=== PATIENT | male | born 1990 | race Two or more races ===

== ENCOUNTER 2021-07-27 20:52 | Emergency (ER) | payer OTHER ==
[2021-07-27] MEDS ORDERED: Lidocaine 1% with EPINEPHrine 1:100,000 10 ML MDV INJECT ONE (22:18)
[2021-07-27] MEDS ORDERED: Cefdinir 300 MG Cap PO ONE (22:32)
--- NOTE | 2021-07-27 22:38 | EDM.PDOC ---
ED HPI GENERAL MEDICAL PROBLEM - General Chief Complaint: Laceration Stated Complaint: LT THUMB LAC Time Seen by Provider: 07/27/21 22:18 Source of Information: Reports: Patient, RN Notes Reviewed History Limitations: Reports: No Limitations - History of Present Illness INITIAL COMMENTS - FREE TEXT/NARRATIVE: Patient is a 31-year-old male who presents to the ER for evaluation of a left thumb laceration. Patient notes he was using a screwdriver at home, when the screwdriver slipped off of the screw, and ended up puncturing the base of his left thumb. States that it did go in fairly deep, but did come out intact. He is up-to-date on his tetanus vaccine. Patient states that he thought he could see bone, he did try to clean the area with antiseptic wipe He is denying any numbness or tingling distal to the injury. Can move his thumb in all range of motion without difficulty. He did not take anything for pain management states is not super painful. Patient denies any other sick-like symptoms, fever/chills, cough/shortness of breath, nausea/vomiting/diarrhea. - Related Data Allergies Allergy/AdvReac Type Severity Reaction Status Date / Time No Known Allergies Allergy Verified 07/27/21 22:18 Home Meds: Home Meds Cefdinir [Omnicef] 300 mg PO BID 5 Days #10 cap 07/27/21 [Rx] Past Medical History - Past Health History Medical/Surgical History: Denies Medical/Surgical History Social & Family History - Tobacco Use Tobacco Use Status *Q: Never Tobacco User - Recreational Drug Use Recreational Drug Use: No ED ROS GENERAL - Review of Systems Review Of Systems: Comprehensive ROS is negative, except as noted in HPI. ED EXAM, SKIN/RASH Exam: See Below Exam Limited By: No Limitations General Appearance: Alert, WD/WN, No Apparent Distress Respiratory/Chest: No Respiratory Distress, Lungs Clear, Normal Breath Sounds, No Accessory Muscle Use, Chest Non-Tender Cardiovascular: Normal Peripheral Pulses, Regular Rate, Rhythm, No Edema Peripheral Pulses: 2+: Radial (L), Radial (R) Extremities: Normal Inspection, Normal Range of Motion, Normal Capillary Refill Neurological: Alert, Oriented, Normal Cognition, No Motor/Sensory Deficits Psychiatric: Normal Affect, Normal Mood Skin: Warm, Dry, Normal Color, No Rash, Wound/Incision (base of left thumb puncture wound) ED SKIN PROCEDURES - Laceration/Wound Repair Left Proximal Digit - 1st (Thumb) Appearance: Subcutaneous, Linear, Clean Distal NVT: Neuro & Vascular Intact, No Tendon Injury Anesthetic Type: Local Local Anesthesia - Lidocaine (Xylocaine): 1% with EPI Local Anesthetic Volume: 3cc Skin Prep: Chlorhexidine (Hibiciens), Saline Exploration/Debridement/Repair: Wound Explored, In a Bloodless Field, No Foreign Material Found Closed with: Sutures Lac/Wound length In cm: 0.5 Suture Size: 4-0 # of Sutures: 2 Suture Type: Prolene, Interrupted, Simple Sterile Dressing Applied: Nurse Tetanus Status Addressed: Yes Complications: No Course - Vital Signs Last Recorded V/S: Last Vital Signs Temp 97.0 F 07/27/21 22:16 Pulse 77 07/27/21 22:16 Resp 16 07/27/21 22:16 BP 143/79 H 07/27/21 22:16 Pulse Ox 96 07/27/21 22:16 - Orders/Labs/Meds Meds: Medications Discontinued Medications Generic Name Dose Route Start Last Admin Trade Name Grace PRN Reason Stop Dose Admin Cefdinir 300 mg 07/27/21 22:32 07/27/21 23:13 Cefdinir 300 Mg Cap PO 07/27/21 22:33 300 mg ONETIME ONE Administration Lidocaine/Epinephrine 10 ml 07/27/21 22:18 07/27/21 23:13 Lidocaine 1% With Epinephrine 1:100,000 10 Ml Mdv INJECT 07/27/21 22:19 10 ml ONETIME ONE Administration - Re-Assessments/Exams Free Text/Narrative Re-Assessment/Exam: 07/27/21 22:35 Patient presents to the ER for the evaluation of a left thumb puncture wound. We will go ahead and place him on antibiotics because the wound was fairly deep and states that he did see bone. Departure - Departure Time of Disposition: 22:36 Disposition: Home, Self-Care 01 Condition: Good Clinical Impression: Puncture wound of thumb Qualifiers: Encounter type: initial encounter Laterality: left Qualified Code(s): S61.032A - Puncture wound without foreign body of left thumb without damage to nail, initial encounter - Discharge Information *PRESCRIPTION DRUG MONITORING PROGRAM REVIEWED*: No *COPY OF PRESCRIPTION DRUG MONITORING REPORT IN PATIENT [place]: No Prescriptions: Cefdinir [Omnicef] 300 mg PO BID 5 Days #10 cap Instructions: Puncture Wound, [id number], Sutures, Obdulio, or Adhesive Wound Closure, [id number] Referrals: PCP,None [Primary Care Provider] - Forms: ED Department Discharge Additional Instructions: You have been evaluated in the ED for your laceration. Sutures will need to stay in for 10 to 14 days. You may return to the ED or any clinic for removal. Please keep this area clean and dry, you may cleanse with regular soap and water. No vigorous scrubbing. Please try to avoid submerging the affected area in water for prolonged periods of time until the sutures are removed. You have been placed on oral antibiotics, due to the depth of the wound. This will be 1 tablet Omnicef 2 times a day for the next 5 days. This medication was electronically sent to the [facility] located near [facility]. You may use medications like Tylenol ibuprofen every 6 hours as needed for ongoing pain management. Please return to ED if your symptoms change or worsen. Sepsis Event Note (ED) - Focused Exam Vital Signs: Vital Signs Temp Pulse Resp BP Pulse Ox 07/27/21 22:16 97.0 F 77 16 143/79 H 96
== END 2021-07-27 23:42 | disposition home or self-care (01) ==
LOC: JD.ED 20:52
DX: S61.032A Puncture wound without foreign body of left thumb without damage to nail, initial encounter (principal); W27.0XXA Contact with workbench tool, initial encounter; Y92.009 Unspecified place in unspecified non-institutional (private) residence as the place of occurrence of the external cause
CPT/HCPCS: 12001; 99282; A9270